=== PATIENT | male | born 1950 | race Caucasian/White ===

== ENCOUNTER 2024-08-13 08:42 | Outpatient (REF) | payer MEDICARE, SELFPAY ==
--- NOTE | ~2024-08-13 | CT_ITS ---
CLINICAL HISTORY: H o smoking CT chest with contrast Comparison: None Findings: Heart is normal in size. No pericardial effusion. Atherosclerotic calcifications of the thoracic aorta and coronary arteries. The visualized thyroid is unremarkable. Prominent lymph node in the aortopulmonary window measuring up to 9 mm in short axis dimension. Biapical pleural thickening/scarring. Mild background emphysematous changes. Scattered areas of mild subpleural reticulation reflecting chronic interstitial changes. Few scattered bilateral pulmonary nodules noted, for instance in the 5 mm right lower lobe (series 4, image 83), 6 mm pulmonary nodule in the posterior inferior aspect of the left upper lobe (series 4, image 54), and a 6 mm pulmonary nodule in the left lower lobe (series 4, image 115). Focal area of apparent nodularity with surrounding ground-glass opacity in the posterior aspect of the right upper measuring up to 9 mm (for instance series 4, image 33-35). The appearance may be infectious inflammatory, recommend pulmonology follow-up as well as a short-term follow-up CT in approximately one month, with further management recommendations at that time to be guided by the largest/most suspicious pulmonary nodule. Hepatic steatosis. There is a solid exophytic mass appearing to arise from the posterior aspect of the gastric fundus (series 5, image 55) measuring 3.2 x 4.1 cm. This is suspicious for neoplasm/malignancy until proven otherwise. GI consultation is recommended. The bones are intact. Punctate symmetric bilateral gynecomastia. IMPRESSION: 1. There are bilateral pulmonary nodules, measuring up to 6 mm. A more focal area of apparent nodularity with surrounding ground-glass opacity in the posterior aspect of the right upper measuring up to 9 mm. The appearance may be infectious inflammatory, recommend pulmonology follow-up as well as a short-term follow-up CT in approximately one month, with further management recommendations at that time to be guided by the largest/most suspicious pulmonary nodule. 2. Prominent lymph node in the aortopulmonary window measuring up to 9 mm in short axis dimension, nonspecific and possibly reactive. Attention can be paid to this on the follow-up chest CT recommended above. 3. Incidentally noted a solid exophytic mass appearing to arise from the posterior aspect of the gastric fundus measuring up to 4.1 cm. This is suspicious for neoplasm/malignancy until proven otherwise. GI consultation is recommended. 4. Hepatic steatosis. 5. Additional findings as described. This document has been electronically signed by: Ayana Carey MD on 08/14/2024 12:54:37
--- OUTSIDE RECORDS SUMMARY | 2024-08-13 09:23 | XMS_ITS | Clinical Summary ---
Author Organization [facility] Address [address] [place] [address] Care Team Providers Care Computer Engineer Name Role Phone Calixto Lawrence MD Primary Care Provider [phone] Surgical History Surgery Date Site/Laterality Comments BACK SURGERY PROCEDURE:BACK SURGERY HERNIA REPAIR PROCEDURE:HERNIA REPAIR Medical History Medical History Date Comments SNHL (sensorineural hearing loss) DX:SNHL (sensorineural hearing loss) Hypertension DX:Hypertension DANIEL (obstructive sleep apnea) DX :DANIEL (obstructive sleep apnea) Prostate cancer (CMS/HCC) DX:Pro state cancer ([facility]) Family History Medical History Relation Name Comments Cancer Father prostate Cancer Father's Brother prostate Relation Name Status Comments Father Father's Brother Social History Tobacco Use Types Packs/Day Years Used Date Smoking Tobacco: Every Day Smokeless Tobacco: Never Alcohol Use Standard Drinks/Week Comments Not Currently 0 (1 standard drink = 0.6 oz pur e alcohol) Sex and Gender Information Value Date Recorded Sex Assigned at Not on file Legal Sex Male 7:10 PM EST Gender Identity Not on file Sexual Orientation Not on file Obstetrics History Last Filed Vital Signs Vital Sign Reading Time Taken Comments Blood Pressure 139/59 07/08/2023 2:35 PM EST Sitting Right arm Pulse 58 07/08/2023 2:35 PM EST Temperature - - Respiratory Rate - - Oxygen Saturation - - Inhaled Oxygen Concentration - - Weight 98.5 kg (217 lb 3.2 oz) 07/08/2023 2:35 PM EST Height 174 cm (5' 8.5 ) 07/08/2023 2:35 PM EST Body Mass Index 32.54 07/08/2023 2:35 PM EST Plan of Treatment Health Maintenance Due Date Last Done Comments COVID-19 Vaccine (#1) 1954 DTaP,Tdap,and Td Vaccines (1 - Tdap) 1968 Pneumococcal Vaccine: 50+ Ye ars (1 of 2 - PCV) 1968 Zoster Vaccines (1 of 2) 1968 Abdominal Aortic Aneurysm (A AA) Screen 07/09/2023 Cholesterol Screening (Lipid Panel) 07/09/2023 Colorectal Cancer Screening: Colonoscopy 07/09/2023 Depression Screening 07/09/2023 Falls Risk Assessment 07/09/2023 Hepatitis C Screening 07/09/2023 Social Influencers of Health Screening 07/09/2023 Influenza Vaccine (#1) 2024 RSV Immunization Patients 60 + Years Old (1 - 1-dose 75+ series) 2024 HIB Vaccines Aged Out No longer eligi ble based on patient's age to complete this topic HPV Vaccines Aged Out No longer eligi ble based on patient's age to complete this topic Hepatitis A Vaccines Aged Out No long er eligible based on patient's age to complete this topic Hepatitis B Vaccines Aged Out No long er eligible based on patient's age to complete this topic IPV Vaccines Aged Out No longer eligi ble based on patient's age to complete this topic MMR Vaccines Aged Out No longer eligi ble based on patient's age to complete this topic Meningococcal ACWY Vaccine Aged Out N o longer eligible based on patient's age to complete this topic Meningococcal B Vacine Aged Out No lo nger eligible based on patient's age to complete this topic RSV Immunization Patients Un veronica 20 months Aged Out No longer eligible b ased on patient's age to complete this topic Varicella Vaccines Aged Out No longer eligible based on patient's age to complete this topic Care Teams Computer Engineer Relationship Specialty Start Date End Date Calixto Lawrence MD [address] [place] [address] PCP - General 12/07/22
--- OUTSIDE RECORDS SUMMARY | 2024-08-13 09:23 | XMS_ITS | Clinical Summary ---
Author Organization [facility] Address [address] [place] [address] Care Team Providers Care Technician Plant And Maintenance Name Role Phone Calixto Lawrence MD Primary Care Provider [phone] Allergies Active Allergy Reactions Criticality Noted Date Comments Morphine 12/26/2022 Medications Medication Sig Dispensed Refills Start Date End Date Status metoprolol succinate (TOPROL-XL) 24 hr tablet 50 mg 0 10/10/2022 Active amitriptyline (ELAVIL) 75 MG tablet Take 1 tablet (75 mg total) by mouth. 0 12/10/2012 Active atorvastatin (LIPITOR) tablet 20 mg Take 1 tablet (20 mg total) by mouth. 0 02/24/2015 Active gabapentin (NEURONTIN) 300 MG capsule Take 1 capsule (300 mg total) by mouth. 0 12/10/2012 Active tadalafil (CIALIS) 20 MG tablet TAKE ONE TABLET BY MOUTH 2 HOURS PRIOR TO INTENDED ACTIVITY ONCE A DAY DIRECTED 0 11/08/2022 Active Active Problems Problem Noted Date Diagnosed Date Prostate cancer 01/04/2023 Family History Medical History Relation Name Comments Cancer Father prostate Cancer Paternal Uncle prostate Relation Name Status Comments Father Paternal Uncle Social History Tobacco Use Types Packs/Day Years Used Date Smoking Tobacco: Every Day Cigars Smokeless Tobacco: Never Tobacco Cessation:Ready to Q uit: Not Asked; Counseling Given: Not Answered Alcohol Use Standard Drinks/Week Comments Not Currently 0 (1 standard drink = 0.6 oz pur e alcohol) Sex and Gender Information Value Date Recorded Sex Assigned at Male 12/07/2022 3:04 PM EDT Gender Identity Not on file Sexual Orientation Not on file Job Start Date Occupation Industry Not on file Not on file Not on file Last Filed Vital Signs Vital Sign Reading Time Taken Comments Blood Pressure 139/59 07/08/2023 2:35 PM EST Pulse 58 07/08/2023 2:35 PM EST Temperature 36.7 ??C (98 ??F) 07/08/2023 2:35 PM EST Respiratory Rate - - Oxygen Saturation 99% 07/08/2023 2:35 PM EST Inhaled Oxygen Concentration - - Weight 98.5 kg (217 lb 3.2 oz) 07/08/2023 2:35 P M EST Height 174 cm (5' 8.5 ) 07/08/2023 2:35 PM EST Body Mass Index 32.54 07/08/2023 2:35 PM EST Plan of Treatment Health Maintenance Due Date Last Done Comments Hepatitis C Screening 1950 COVID-19 Vaccine (#1) 1954 Depression Screening 1961 BMI Counseling 09/25/1967 Preventative Health Evaluation 09/25/1967 Tobacco Cessation Counseling 09/25/1967 Colon Cancer Screening (Colonoscopy) 1994 Abdominal Aortic Aneurysm (AAA) Screening 2014 Fall Risk Assessment 2014 DTap / Tdap / Td (2 - Tdap) 12/04/2023 12/03/2013 Influenza Vaccine (#1) 2024 , 04/02/2022, 03/23/2021, Additional history exists RSV Adult > 60+ Yrs or (1 - 1-dose 75+ series) 2024 Shingrix-Zoster Vaccine Completed 10/16/2018, 08/15 Pneumococcal Vaccine Completed 07/29/2019, 07/14/2015, 02/08/2014, Additional history exists Hepatitis B Vaccines Aged Out No long er eligible based on patient's age to complete this topic RSV Ped < 20 months Aged Out No longe r eligible based on patient's age to complete this topic Care Teams Technician Plant And Maintenance Relationship Specialty Start Date End Date Calixto Lawrence MD [address], [place] [id number] PCP - General Internal Medicine 12/07/22
[2024-08-13] MEDS: iohexoL 350 MG/ML 75 ML INFUS..BTL 65 ML IV (09:57)
[2024-08-14 07:33] LABS: Creatinine POC 1.1 mg/dL (0.5-1.4); GFR POC > 60
== END 2024-08-13 08:43 | disposition home or self-care (01) ==
LOC: HO.CT 08:42
PROVIDERS: PCP Internal Medicine; Visit Provider Internal Medicine
DX: Z87.891 Personal history of nicotine dependence (principal)
CPT/HCPCS: 71260; 82565; Q9967

== ENCOUNTER → 2024-08-13 09:28 | Outpatient (BNV) | payer MEDICARE, SELFPAY | PROVIDERS: PCP Internal Medicine; Visit Provider Radiology Diagnostic Radiology | DX: Z87.891 Personal history of nicotine dependence (principal) | CPT/HCPCS: 71260 ==